=== PATIENT | male | born 1995 | race Hispanic/Latino ===

== ENCOUNTER 2025-01-18 12:19 | Emergency (ER) | payer SELFPAY ==
[~2025-01-18] VITALS: Ht 190.5 cm; Wt 127.0 kg
[2025-01-18] MEDS: HYDROcodone/APAP 5/325 1 TAB TABLET PO STA (12:56)
[2025-01-18 13:55] VITALS: BP 137/78; PULSE 78; RESP 16; TEMP 98.3; O2SAT 97
[2025-01-18] MEDS: TETRACAINE HCL 0.5% 4 ML OPHTH SOLN OP STA (14:52)
[2025-01-18] MEDS: FLUORESCEIN SODIUM 1 STRIP STRIP OP ONE (14:53)
--- NOTE | 2025-01-18 15:19 | ERN ---
ED Note History of Present Illness Stated Complaint: EYE PAIN Chief Complaint: Eye Problems Time Seen by MD: 12:23 Time Seen by Midlevel: 12:29 Dictation: 29-year-old male coming in with the complaints of blurry vision to the right eye. Patient states three days ago he was at work and ran into a pole and hit the corner of his right eye. Patient states he has pain in has blurry vision with " red blotch". Patient does use corrective eyeglass. Allergies: Coded Allergies: No Known Drug Allergies (Unverified Allergy, Unknown, 01/18/25) Past Medical History Past Medical History: No Pertinent History Surgical History: None Review of System Dictation Constitutional: Negative for fever,chills, and weight loss Eyes: Complaining of right eye pain and blurry vision ENT: Negative for injury,pain or swelling Cardiovascular: Negative for chest pain, palpitations, and edema Respiratory: Negative for shortness of breath, cough, and wheezing, Abdomen/GI: Negative for abdominal pain, nausea, vomiting, diarrhea, and constipation Back: Negative for injury and pain : Negative for injury, bleeding and discharge MS/Extremity: Negative for injury and deformity Skin: Negative for rash, and discoloration Neuro: Negative for headache, weakness, numbness, tingling, and seizure Psych: Negative for suicide ideation, homicidal ideation, and hallucinations Review of Systems: was completed Initial Vital Sign VS Vital Signs Date Time Temp Pulse Resp B/P (MAP) Pulse Ox O2 Delivery O2 Flow Rate FiO2 01/18/25 12:22 98.6 76 18 130/85 98 01/18/25 13:55 Room Air* 0 21 Physical Exam Dictation General: awake, alert, NAD Head/Face: Normocephalic, atraumatic Eyes: PERRL, EOMI, patient states has a blurry vision, on fluorescein stain there is no stained reuptake, negative for any corneal abrasions, foreign body. No hyphema. Negative sidniel . ENT: oral cavity clear, TMs clear, no signs of infection Neck: Trachea midline, supple, no nuchal rigidity Cardiovascular: RRR, normal S1/S2, No MRGs, no JVD Respiratory: CTAB, no respiratory distress, No rales or wheezes Abdomen: Soft, non-tender, non-distended, normal bowel sounds, no guarding or rebound. Skin: Warm, dry, normal turgor, no rash MS/Extremity: Pulses equal, no cyanosis, neurovascular intact, FROM Neuro: COAx4, GCS 15, strength 5/5, CN 2-12 intact, normal cerebellar exam, normal gait, Psych: Normal behavior, mood, and affect normal Results (Laboratory/Radiology) CT Scan Comment: [facility] [id number] [place] [address] IMAGING REPORT Signed PATIENT: ARPIT WELCH MR#: [id number] : 1995 SEX: M AGE: 29 LOCATION: [facility] ORDER 1245 STATUS: REG ER REPORT#: [id number] SERVICE 43 REASON: trauma, right eye blurry vision/red floaters ORDERING PHYSICIAN: GEORGIANA ALEXANDER NP PROCEDURE: ORB IAC WO - CT ORB/NINA/EAR W/O CONTRAST EXAM: CT Orbits Without IV contrast. CLINICAL HISTORY: trauma, right eye blurry vision/red floaters TECHNIQUE: Axial computed tomography images of the orbits without intravenous contrast. CONTRAST: None. COMPARISON: None provided. FINDINGS: ORBITS: Unremarkable. No retrobulbar hematoma. No post-septal fat stranding or fluid BONES: No acute fracture or aggressive appearing osseous lesion. No periosteal reaction. SINUSES: Minimal mucosal thickening in the right maxillary and right ethmoid sinuses. No sinus air-fluid level as visualized. Rest of the paranasal sinuses are unremarkable. SOFT TISSUES: No soft tissue gas. No radiopaque foreign body. MISCELLANEOUS: The nasal septum is deviated toward the left side. IMPRESSION: 1. No acute orbital or facial osseous injury. /[place] DICTATED BY: NORA HUERTA Jr., MD DATE: 01/18/251513 ELECTRONICALLY SIGNED BY: NORA HUERTA Jr., MD DATE: 01/18/251513 ED Course ED Course Orders Procedure Category Date Status Time Hydrocodone/Apap PHA 01/18/25 Complete 5/325 (Verdi 5/325mg) 12:35 Ct Orb/Nina/Ear W/O CT 01/18/25 Resulted Contrast 12:44 Tetracaine Hcl PHA 01/18/25 Complete (Pontocaine 0.5% 14:24 Fluorescein Sodium PHA 01/18/25 Complete (Kwdxw-Q-Vslwp At) 15:00 Current Medications Medications (Trade) Dose Ordered Sig/Magda Route PRN Reason Start Time Stop Time Status Last Admin Dose Admin Acetaminophen/ Hydrocodone Bitart (NORco 5/325MG) 1 tab ONCE STAT PO 01/18/25 12:35 01/18/25 12:37 DC 01/18/25 12:56 Fluorescein Sodium (Mlddc-G-Cgafu At) 2 strip ONCE ONCE OP 01/18/25 15:00 01/18/25 15:01 DC 01/18/25 14:53 Tetracaine HCl (Pontocaine 0.5% Ophth Soln) 1 OR 2 DROPS ONCE STAT OP 01/18/25 14:24 01/18/25 14:25 DC 01/18/25 14:52 Vital Signs Date Time Temp Pulse Resp B/P (MAP) Pulse Ox O2 Delivery O2 Flow Rate FiO2 01/18/25 13:55 98.2 78 16 137/78 97 Room Air* 0 21 01/18/25 12:22 98.6 76 18 130/85 98 Medical Decision Making MDM MDM: 29-year-old male coming in with the complaints of blurry vision to the right eye. Patient states three days ago he was at work and ran into a pole and hit the corner of his right eye. Patient states he has pain in has blurry vision with " red blotch". Patient does use corrective eyeglass. CT scan shows no acute findings. After fluorescein stain exam and apply tetracaine drops and fluorescein dye patient states he feels much better. States he does not see the red blotch anymore. Discussed with the patient that he needs to follow up either this afternoon or tomorrow with an christian science reader. Return to the hospital if he has any worsening symptoms. Patient verbalized understanding, answered all questions. Differential diagnosis: Nail abrasion, vitreal hemorrhage, globe rupture Rationale: Tests considered and ordered secondary to shared decision making include: Previous outside records reviewed: Old ER visits. Risk of complication and/or morbidity or mortality of patient management: None Medications-Per medication reconciliation Need for hospitalization: Patient does not meet criteria for hospitalization. Need for emergency major/minor surgery: No There are no social concerns with this patient. Prescription drug management Prescriptions will include symptomatic care Patient's prior external medical records from other ER visits were reviewed by me as indicated. Prior testing and results from previous visits were reviewed. Prior tests were taken into account with medical decision making and resource u tilization, independent historian/historians were used to obtain complete medical history. I independently interpreted the test that were performed, results were reviewed by me and considered findings on radiology if ordered. Medical management and examination interpretation discussions were had by me with other qualified healthcare professionals as indicated for the patient's ca re. DX & DISP Disposition: Discharge Departure Impression: Primary Impression: Eye injury, non-penetrating Condition: Stable Additional Instructions: Please follow up with with an christian science reader either today in the afternoon or tomorrow morning. If you notice any decline in your vision or worsening symptoms please report back to an ER. Referrals: SELF,REFERRAL (PCP) KERRY BROWN MD Time of Disposition: 15:15 I have reviewed the case, and I agree with, Diagnosis and Plan GEORGIANA ALEXANDER NP Jan 18, 2025 15:19
--- NOTE | 2025-01-19 14:41 | HMCIMG ---
EXAM: CT Orbits Without IV contrast. CLINICAL HISTORY: trauma, right eye blurry vision/red floaters TECHNIQUE: Axial computed tomography images of the orbits without intravenous contrast. CONTRAST: None. COMPARISON: None provided. FINDINGS: ORBITS: Unremarkable. No retrobulbar hematoma. No post-septal fat stranding or fluid BONES: No acute fracture or aggressive appearing osseous lesion. No periosteal reaction. SINUSES: Minimal mucosal thickening in the right maxillary and right ethmoid sinuses. No sinus air-fluid level as visualized. Rest of the paranasal sinuses are unremarkable. SOFT TISSUES: No soft tissue gas. No radiopaque foreign body. MISCELLANEOUS: The nasal septum is deviated toward the left side. IMPRESSION: 1. No acute orbital or facial osseous injury. /[place]
== END 2025-01-18 15:26 | disposition home or self-care (01) ==
LOC: EDH 12:19 → EDBD 12:19 → EDH 15:26
DX: S05.91XA Unspecified injury of right eye and orbit, initial encounter (principal); X58.XXXA Exposure to other specified factors, initial encounter; Y93.89 Activity, other specified; Y92.89 Other specified places as the place of occurrence of the external cause; Y99.8 Other external cause status
CPT/HCPCS: 70480; 99284